=== PATIENT | male | born 1950 | race Caucasian/White ===

== ENCOUNTER 2017-05-14 06:44 | Day surgery (SDC) | payer OTHER ==
[~2017-05-14] VITALS: Ht 182.9 cm; Wt 93.2 kg
[2017-05-14 06:59] VITALS: BP 123/90; PULSE 81; RESP 20; TEMP 98.3; O2SAT 96
[2017-05-14] MEDS ORDERED: CHLORHEXIDINE GLUCONATE 2 % 1 PACK (2 CLOTHS) TOPICAL SCH (07:15)
[2017-05-14] MEDS ORDERED: SODIUM CHLORIDE 0.9% 1000 ML IV SCH (07:15)
[2017-05-14] MEDS ORDERED: VANCOMYCIN 1000 MG/NS 250 ML - implanted port/tunneled catheter IV SCH ×2 (07:15)
[2017-05-14] MEDS ORDERED: LEVOFLOXACIN 500 MG PREMIX 100 ML - nephrostomy tube insertion or exchange IV SCH (07:15)
[2017-05-14] MEDS ORDERED: POVIDONE IODINE 5% (ANTISEPSIS KIT) 4 APPLICATIONS EACH NARE SCH (07:15)
[2017-05-14] MEDS ORDERED: OXYC1TAB35 PO (07:42)
[2017-05-14] MEDS ORDERED: FISHCAP4 PO (07:42)
[2017-05-14] MEDS ORDERED: ASPI81CH7 CHEW (07:42)
[2017-05-14] MEDS ORDERED: FLUO40CA PO (07:42)
[2017-05-14] MEDS ORDERED: FENO160T PO (07:42)
[2017-05-14] MEDS ORDERED: VITA1000 PO (07:42)
[2017-05-14] MEDS ORDERED: LISI10TA3 PO (07:42)
[2017-05-14] MEDS ORDERED: ROSU1TAB6 PO (07:42)
[2017-05-14] MEDS ORDERED: MIDAZOLAM HCL 5 MG/5 ML VIAL ONE (08:20)
[2017-05-14] MEDS ORDERED: fentaNYL CITRATE 250 MCG/5 ML AMP ONE (08:21)
[2017-05-14] MEDS ORDERED: LIDOCAINE 1%/EPINEPHrine 1:100,000 SOLN 20 ML VIAL ONE (08:57)
[2017-05-14 10:00] VITALS: BP 127/72; PULSE 90; RESP 20; TEMP 97.7; O2SAT 97
[2017-05-14] MEDS ORDERED: SODIUM CHLORIDE 0.9% FLUSH 10 ML FLUSH IVF PRN (10:00)
--- NOTE | 2017-05-14 10:02 | PD.RAD ---
Post Procedure Progress Note Pre Procedure Diagnosis: (1) Lung cancer Post Procedure Diagnosis: (1) Lung cancer Procedure Date: May 14, 2017 Supervising Radiologist: Ricardo Snider Proceduralist/Assist: RT Dominga(R) Anesthesia: Local, Conscious Sedation Plan of Activity Patient to Unit: ROPU Patient Condition: Good See PACS Report for procedural detail/treatment Central Venous Access Device Procedure 1 Left Internal Jugular Infusaport Placement single lumen Indonesian: 8 Ricardo Snider MD May 14, 2017 10:02
[2017-05-14 10:15] VITALS: BP 116/76; PULSE 85; RESP 20; O2SAT 97
[2017-05-14 10:45] VITALS: BP 114/68; PULSE 78; RESP 20; O2SAT 95
[2017-05-14 11:15] VITALS: BP 112/69; PULSE 75; RESP 18; O2SAT 93
[2017-05-14 11:45] VITALS: BP 122/75; PULSE 75; RESP 20; O2SAT 94
--- NOTE | 2017-05-14 12:29 | RADRPT ---
EXAM DATE/TIME: 05/14/2017 08:14 [facility] COMPARISON: No previous studies available for comparison. INDICATIONS : Patient presents with lung cancer in need of port placment chemotherapy treatment. MEDICAL HISTORY : Right lung cancer HTN Heart murmur SURGICAL HISTORY : Right cataract sx Right lobectomy Back and ankle sx Hernia x2 ENCOUNTER: Initial ACUITY: 1 month PAIN SCORE: 0/10 LOCATION: N/A FLUORO TIME: 1.4 minutes IMAGE SERIES: 1 SEDATION TIME: 60 minutes ACCESS: Left internal jugular vein SEDATION: 1.) 5 mg midazolam (Versed) IV 2.) 250 mcg fentanyl (Sublimaze) IV Prophylactic antibiotics were administered with appropriate pre-procedure timing. Vancomycin within 2 hours of procedure, Ancef (or alternative) within 1 hour of procedure. DEVICE: 1. 8 Uzbek single lumen Smart port CT w/ vortex PROCEDURE : 1. Continuous pulse oximetry and EKG monitoring. 2. Intravenous conscious sedation. 3. Ultrasound guidance for venous access. 4. Fluoroscopic guided implantable central venous port placement. The patient was placed supine. The neck was prepped in sterile fashion. Full sterile technique was u sed, including cap, mask, sterile gloves and gown, and a large sterile sheet. Hand hygiene and 2% ch lorhexidine Betadine was utilized per protocol for cutaneous antisepsis with appropriate dry time for site. The skin and subcutaneous tissues were infiltrated with local anesthetic solution. Under direct ultrasound guidance, central venous access was accomplished in the targeted vessel. The ultrasound images depicting access guidance were stored and saved to PACS for permanent record. A s ubcutaneous pocket was created using blunt dissection. The port was introduced to the pocket. The c atheter tubing was fed through a subcutaneous tunnel to the venotomy site. The catheter tubing was c ut to a suitable length and then was introduced through a valved Peel-Away sheath and positioned with catheter tubing tip at the cavo-atrial junction level. The pocket incision was closed with subcutic ular Vicryl suture. Steri-Strips were applied. The port was flushed and locked with heparin solutio n per protocol. Sterile dressing was applied to the site. The patient tolerated the procedure well. Conscious sedation was performed with the prescribed dosages and duration as above in the presence of an independent trained radiology nurse to assist in the monitoring of the patient. EKG and oximetry remained stable throughout the procedure. The patient tolerated the procedure well and there were no complications. The patient was sent to post anesthesia recovery in stable condition. CONCLUSION: Uncomplicated ultrasound and fluoroscopic guided implanted central venous port catheter placement as described in detail above. An 8 Uzbek Power port was placed. Ricardo Snider MD on May 14, 2017 at 12:27 Board Certified Radiologist. This report was verified electronically.
== END 2017-05-14 11:55 | disposition home or self-care (01) ==
LOC: HROP 06:44 → HRIP 06:44 → HROP 11:55
PROVIDERS: ATTEND Internal Medicine Hematology & Oncology
DX: C34.90 Malignant neoplasm of unspecified part of unspecified bronchus or lung (principal); I10 Essential (primary) hypertension; R01.1 Cardiac murmur, unspecified
CPT/HCPCS: 36561; 76937; 77001; 99152; 99153; C1769; C1788; C1887; C1894; J1642; J1956; J2250; J3010; J3370; J7030; J7050

== ENCOUNTER 2017-09-05 05:52 | Emergency (ER) | payer OTHER ==
[~2017-09-05] VITALS: Ht 185.4 cm; Wt 95.0 kg
[~2017-09-05 05:52] MED LIST: ASPI81CH7 CHEW; FENO160T PO; FISHCAP4 PO; FLUO40CA PO; LISI10TA3 PO; OXYC1TAB35 PO; ROSU1TAB6 PO; VITA1000 PO
[2017-09-05 05:54] VITALS: BP 120/80; PULSE 98; RESP 22; TEMP 97.9; O2SAT 96
--- NOTE | 2017-09-05 06:14 | PD ---
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 Wong, here for evaluation of chest pain. Patient reports that the pain started yesterday just before 3 PM while receiving a blood transfusion. The patient reports that he received 2 units of blood yesterday at [facility]. He reports that the pain is in his mid back between his shoulder blades and radiates to his bilateral shoulders. He is unable to describe the pain. The pain is moderate to severe, constant, no modifying factors. He is having some dyspnea, but states that he always has dyspnea after his lobectomy. He denies fevers or chills. No cough or hemoptysis. No history of DVT or PE. No known history of CAD. No paresthesias or motor deficits. Patient tells me that he usually receives Lasix with his blood transfusions, however he did not receive Lasix yesterday, and believes that this may be causing his symptoms. PFSH Past Medical History Cancer: Yes (lung) Cardiovascular Problems: Yes (murmur) Diabetes: No Endocrine: No Genitourinary: No Hepatitis: No Hiatal Hernia: No Hypertension: Yes Immune Disorder: No Musculoskeletal: Yes (rods and screws in back) Neurologic: No Psychiatric: No Reproductive: No Respiratory: No Thyroid Disease: No Tetanus Vaccination: Unknown Past Surgical History Abdominal Surgery: Yes (hernia) AICD: No Cardiac Surgery: No Ear Surgery: No Endocrine Surgery: No Eye Surgery: Yes (right cataract) Genitourinary Surgery: No Gynecologic Surgery: No Joint Replacement: No Oral Surgery: No Pacemaker: No Thoracic Surgery: Yes (2/3 of lung removed) Other Surgery: Yes Social History Alcohol Use: No Tobacco Use: No Substance Use: No Allergies-Medications (Allergen,Severity, Reaction): Coded Allergies: penicillin G (Unverified Allergy, Severe, 09/05/17) Reported Meds & Prescriptions Reported Meds & Active Scripts Active Reported Rosuvastatin (Rosuvastatin Calcium) 10 Mg Tab 10 Mg PO HS Oxycodone-Acetaminophen 7.5-325 mg Tab 1 Tab PO BID PRN Fluoxetine (Fluoxetine HCl) 40 Mg Cap 40 Cap PO DAILY Fish Oil + D3 (Fish Oil-Cholecalciferol) 1,200-1,000 Mg-Unit Cap 1 Cap PO DAILY Aspirin Children's (Aspirin) 81 Mg Chew 81 Mg CHEW DAILY Vitamin D-1000 (Cholecalciferol) 1,000 Unit Tab 1,000 Units PO DAILY Review of Systems Except as stated in HPI: all other systems reviewed are Neg Physical Exam Narrative GENERAL: Well-developed, well-nourished, comfortable, no apparent distress. SKIN: Focused skin assessment warm/dry. Diffuse pallor. HEAD: Atraumatic. Normocephalic. EYES: Pupils equal and round. No scleral icterus. No injection or drainage. ENT: Mucous membranes pink and moist. NECK: Trachea midline. No JVD. CARDIOVASCULAR: Regular rate and rhythm. Distal pulses brisk and equal bilaterally. RESPIRATORY: No accessory muscle use. Clear to auscultation. Breath sounds equal bilaterally. GASTROINTESTINAL: Abdomen soft, non-tender, nondistended. MUSCULOSKELETAL: No obvious deformities. No clubbing. No cyanosis. No edema. NEUROLOGICAL: Awake and alert. No obvious cranial nerve deficits. Motor grossly within normal limits. Normal speech. PSYCHIATRIC: Appropriate mood and affect; insight and judgment normal. Data Data Last Documented VS Vital Signs Date Time Temp Pulse Resp B/P (MAP) Pulse Ox O2 Delivery O2 Flow Rate FiO2 09/05/17 05:54 97.9 98 22 120/80 (93) 96 Room Air Orders Orders Complete Blood Count With Diff (09/05/17 06:26) Comprehensive Metabolic Panel (09/05/17 06:26) B-Type Natriuretic Peptide (09/05/17 06:26) Act Partial Throm Time (Ptt) (09/05/17 06:26) Prothrombin Time / Inr (Pt) (09/05/17 06:26) Ckmb (Isoenzyme) Profile (09/05/17 06:26) Troponin I (09/05/17 06:26) Iv Access Insert/Monitor (09/05/17 06:26) Ecg Monitoring (09/05/17 06:26) Oximetry (09/05/17 06:26) Oxygen Administration (09/05/17 06:26) Chest, Single Ap (09/05/17 06:26) Ct Pulmonary Angiogram (09/05/17 06:26) Sodium Chloride 0.9% Flush (Ns Flush) (09/05/17 06:30) Aspirin Chew (Aspirin Chew) (09/05/17 07:00) Labs Laboratory Tests Test 09/05/17 06:30 White Blood Count 5.2 TH/MM3 Red Blood Count 3.03 MIL/MM3 Hemoglobin 9.5 GM/DL Hematocrit 27.4 % Mean Corpuscular Volume 90.5 FL Mean Corpuscular Hemoglobin 31.2 PG Mean Corpuscular Hemoglobin Concent 34.5 % Red Cell Distribution Width 16.7 % Platelet Count 97 TH/MM3 Mean Platelet Volume 8.6 FL Neutrophils (%) (Auto) 55.3 % Lymphocytes (%) (Auto) 27.1 % Monocytes (%) (Auto) 17.1 % Eosinophils (%) (Auto) 0.0 % Basophils (%) (Auto) 0.5 % Neutrophils # (Auto) 2.9 TH/MM3 Lymphocytes # (Auto) 1.4 TH/MM3 Monocytes # (Auto) 0.9 TH/MM3 Eosinophils # (Auto) 0.0 TH/MM3 Basophils # (Auto) 0.0 TH/MM3 CBC Comment AUTO DIFF Prothrombin Time 10.7 SEC Prothromb Time International Ratio 1.0 RATIO Activated Partial Thromboplast Time 30.8 SEC Creatinine 1.02 MG/DL Random Glucose 93 MG/DL Albumin 3.7 GM/DL Calcium Level 8.8 MG/DL Aspartate Amino Transf (AST/SGOT) 20 U/L Sodium Level 138 MEQ/L Potassium Level 4.0 MEQ/L Chloride Level 105 MEQ/L Carbon Dioxide Level 23.4 MEQ/L Anion Gap 10 MEQ/L Estimat Glomerular Filtration Rate 73 ML/MIN MDM Medical Decision Making Medical Screen Exam Complete: Yes Emergency Medical Condition: Yes Medical Record Reviewed: Yes Interpretation(s) EKG: Sinus, rate 72, normal axis, normal intervals, no acute ischemic abnormality. Differential Diagnosis ACS, PE, pneumothorax, dissection, pericarditis, pneumonia, pulmonary edema, anemia, musculoskeletal pain, transfusion reaction Narrative Course Initial vital signs show heart rate 98, blood pressure 120/80, pulse ox 96% on room air, oral temp of 97.9F. Chest x-ray shows no infiltrate, no pneumothorax. CBC shows a WBC of 5.1 and hemoglobin of 9.5, platelets 97. At approximately 7:00 AM at the end of my shift the patient was signed out to oncoming provider Dr. Cardoso to follow up with labs, CT pulmonary angiogram, and formulate a disposition. Pavel Gastelum MD Sep 05, 2017 06:14
[2017-09-05] MEDS ORDERED: SODIUM CHLORIDE 0.9% FLUSH 10 ML FLUSH IVF PRN (06:30)
--- NOTE | 2017-09-05 06:47 | RADRPT ---
EXAM DATE/TIME: 09/05/2017 06:32 [facility] COMPARISON: CT SIMULATION, July 11, 2017, 11:05. INDICATIONS : Shortness of breath and chest pain. MEDICAL HISTORY : Right lung cancer. SURGICAL HISTORY : Right lung lobectomy. Infusaport. ENCOUNTER: Initial ACUITY: 2 days PAIN SCORE: 5/10 LOCATION: chest FINDINGS: Left Bmdlro-x-Ceoh catheter tip projects over the right atrium. No evidence pneumothorax. There is blunting of the right cardiophrenic angle congruous with history of right lower lobectomy. The remai nder of the lungs are clear. No evidence of pleural effusion. The heart is normal size. CONCLUSION: No focal infiltrates seen. No evidence of pneumothorax. Abebe Scuhltz MD on September 05, 2017 at 6:44 Board Certified Radiologist. This report was verified electronically.
[2017-09-05 06:48] LABS: AUTOMATED NEUTROPHIL # 2.9 TH/MM3 (1.8-7.7); BASOPHIL % 0.5 % (0.0-2.0); HEMATOCRIT 27.4 % (39.0-51.0); LYMPH % 27.1 % (9.0-44.0); LYMPHOCYTE # 1.4 TH/MM3 (1.0-4.8); MEAN CELL VOLUME 90.5 FL (80.0-100.0); MEAN CORPUSCULAR HEMOGLOBIN 31.2 PG (27.0-34.0); MEAN CORPUSCULAR HGB CONC 34.5 % (32.0-36.0); MONO % 17.1 % (0.0-8.0); NEUT % 55.3 % (16.0-70.0); PLATELET COUNT 97 TH/MM3 (150-450); RED BLOOD COUNT 3.03 MIL/MM3 (4.50-5.90); RED CELL DISTRIBUTION WIDTH 16.7 % (11.6-17.2); WHITE BLOOD COUNT 5.2 TH/MM3 (4.0-11.0)
[2017-09-05 06:54] LABS: HEMO FLAGS AUTO DIFF
[2017-09-05 06:56] LABS: APTT (PATIENT) 30.8 SEC (24.3-30.1); PROTHROMBIN TIME - PATIENT 10.7 SEC (9.8-11.6)
[2017-09-05] MEDS ORDERED: ASPIRIN 81 MG CHEW TAB PO ONE (07:00)
[2017-09-05 07:04] LABS: ANION GAP 10 MEQ/L (5-15); AST (GOT) 20 U/L (15-37); BICARBONATE 23.4 MEQ/L (21.0-32.0); CHLORIDE 105 MEQ/L (98-107); GLOMERULAR FILTRATION RATE 73 ML/MIN (>89); SODIUM (NA) 138 MEQ/L (136-145)
[2017-09-05 07:11] LABS: ALKALINE PHOSPHATASE 71 U/L (45-117); ALT (GPT) 28 U/L (12-78); BLOOD UREA NITROGEN 20 MG/DL (7-18); TOTAL BILIRUBIN ADULT 0.6 MG/DL (0.2-1.0)
[2017-09-05 07:14] LABS: CREATINE KINASE 73 U/L (39-308)
[2017-09-05 07:19] VITALS: BP 115/68; PULSE 67; RESP 12; O2SAT 96
[2017-09-05] MEDS ORDERED: IOHEXOL 350 MG/ML 10 ML VIAL (for RAD DIAG) IVCONTRAST ONE (07:34)
[2017-09-05 07:42] LABS: BANDS 22 % (0-6); METAMYELOCYTES 4 % (0-1); MYELOCYTES 3 % (0-0); NEUTROPHIL # MANUAL DIFF 2.4 TH/MM3 (1.8-7.7); PLATELET ESTIMATE SMEAR LOW (NORMAL); PLATELET MORPHOLOGY NORMAL (NORMAL); POLYS (SEG NEUTROPHILS) 17 % (16-70); SCAN/DIFF FINAL DIFF MANUAL; TOXIC GRANULATION 1+ (NORMAL); WBC DIFF SAMPLE 100
[2017-09-05 07:43] LABS: DOHLE BODIES PRESENT (NONE SEEN); TOXIC VACUOLATION PRESENT (NONE SEEN)
--- NOTE | 2017-09-05 07:49 | RADRPT ---
EXAM DATE/TIME: 09/05/2017 07:18 [facility] COMPARISON: No previous studies available for comparison. INDICATIONS : Mid chest/back pain radiating to shoulders. IV CONTRAST: 65 cc Omnipaque 350 (iohexol) IV RADIATION DOSE: 12.78 CTDIvol (mGy) MEDICAL HISTORY : Carcinoma, lung. Metastatic, brain. Hypertension. SURGICAL HISTORY : Lobectomy. ENCOUNTER: Initial ACUITY: 2 days PAIN SCALE: 5/10 LOCATION: Bilateral chest TECHNIQUE: Volumetric scanning of the chest was performed using a pulmonary embolism protocol MIP images were re constructed. Using automated exposure control and adjustment of the mA and/or kV according to patien t size, radiation dose was kept as low as reasonably achievable to obtain optimal diagnostic quality images. DICOM format image data is available electronically for review and comparison. Follow-up recommendations for detected pulmonary nodules are based at a minimum on nodule size and pa tient risk factors according to Fleischner Society Guidelines. FINDINGS: PULMONARY ARTERIES: No filling defects are seen in the pulmonary arteries through the segmental level. LUNGS: There is emphysema with chronic interstitial changes with peripheral reticular opacities. 8mm nodule upper right lung medially. In the right lower lobe is a 6 mm nodule. Left lower lobe 9 mm nodule. Pos tsurgical changes on the right. Several other smaller nodules are seen. Left-sided portacatheter with tip in the right atrium. PLEURAE: Small right pleural effusion partially loculated. There is no pleural thickening or pleural effusion on the left. MEDIASTINUM: There is good visualization of the great vessels of the middle mediastinum. No evidence of mediastin al or hilar adenopathy/mass. Coronary artery calcifications. MUSCULOSKELETAL: Within normal limits for patient age. MISCELLANEOUS: The visualized upper abdominal organs demonstrate low-density lesion in the liver on the most inferio r edge.. CONCLUSION: 1. No evidence for pulmonary embolism. 2. Postsurgical changes right lung. 3. There are some scattered subcentimeter pulmonary nodules largest left lower lobe measuring 9 mm. M etastatic disease cannot be excluded. 4. Small right-sided partially loculated pleural effusion. 5. Low-density lesion in the liver, could be metastatic lesion. Gomez Dominguez MD on September 05, 2017 at 7:42 Board Certified Radiologist. This report was verified electronically.
--- NOTE | 2017-09-05 07:54 | PD ---
Data Data Last Documented VS Vital Signs Date Time Temp Pulse Resp B/P (MAP) Pulse Ox O2 Delivery O2 Flow Rate FiO2 09/05/17 08:38 (84) 09/05/17 07:19 96 Room Air 09/05/17 07:19 67 12 09/05/17 05:54 97.9 Orders Orders Complete Blood Count With Diff (09/05/17 06:26) Comprehensive Metabolic Panel (09/05/17 06:26) B-Type Natriuretic Peptide (09/05/17 06:26) Act Partial Throm Time (Ptt) (09/05/17 06:26) Prothrombin Time / Inr (Pt) (09/05/17 06:26) Ckmb (Isoenzyme) Profile (09/05/17 06:26) Troponin I (09/05/17 06:26) Iv Access Insert/Monitor (09/05/17 06:26) Ecg Monitoring (09/05/17 06:26) Oximetry (09/05/17 06:26) Oxygen Administration (09/05/17 06:26) Chest, Single Ap (09/05/17 06:26) Ct Pulmonary Angiogram (09/05/17 06:26) Sodium Chloride 0.9% Flush (Ns Flush) (09/05/17 06:30) Aspirin Chew (Aspirin Chew) (09/05/17 07:00) Electrocardiogram (09/05/17 06:08) Iohexol 350 Inj (Omnipaque 350 Inj) (09/05/17 07:34) Ed Discharge Order (09/05/17 08:16) Labs Laboratory Tests Test 09/05/17 06:30 White Blood Count 5.2 TH/MM3 Red Blood Count 3.03 MIL/MM3 Hemoglobin 9.5 GM/DL Hematocrit 27.4 % Mean Corpuscular Volume 90.5 FL Mean Corpuscular Hemoglobin 31.2 PG Mean Corpuscular Hemoglobin Concent 34.5 % Red Cell Distribution Width 16.7 % Platelet Count 97 TH/MM3 Mean Platelet Volume 8.6 FL Neutrophils (%) (Auto) 55.3 % Lymphocytes (%) (Auto) 27.1 % Monocytes (%) (Auto) 17.1 % Eosinophils (%) (Auto) 0.0 % Basophils (%) (Auto) 0.5 % Neutrophils # (Auto) 2.9 TH/MM3 Lymphocytes # (Auto) 1.4 TH/MM3 Monocytes # (Auto) 0.9 TH/MM3 Eosinophils # (Auto) 0.0 TH/MM3 Basophils # (Auto) 0.0 TH/MM3 CBC Comment AUTO DIFF Differential Total Cells Counted 100 Neutrophils % (Manual) 17 % Band Neutrophils % 22 % Lymphocytes % 41 % Monocytes % 13 % Neutrophils # (Manual) 2.4 TH/MM3 Metamyelocytes 4 % Myelocytes 3 % Differential Comment FINAL DIFF MANUAL Toxic Granulation 1+ Toxic Vacuolation PRESENT Dohle Bodies PRESENT Platelet Estimate LOW Platelet Morphology Comment NORMAL Prothrombin Time 10.7 SEC Prothromb Time International Ratio 1.0 RATIO Activated Partial Thromboplast Time 30.8 SEC Blood Urea Nitrogen 20 MG/DL Creatinine 1.02 MG/DL Random Glucose 93 MG/DL Total Protein 7.0 GM/DL Albumin 3.7 GM/DL Calcium Level 8.8 MG/DL Alkaline Phosphatase 71 U/L Aspartate Amino Transf (AST/SGOT) 20 U/L Alanine Aminotransferase (ALT/SGPT) 28 U/L Total Bilirubin 0.6 MG/DL Sodium Level 138 MEQ/L Potassium Level 4.0 MEQ/L Chloride Level 105 MEQ/L Carbon Dioxide Level 23.4 MEQ/L Anion Gap 10 MEQ/L Estimat Glomerular Filtration Rate 73 ML/MIN Total Creatine Kinase 73 U/L Troponin I LESS THAN 0.02 NG/ML B-Type Natriuretic Peptide 80 PG/ML MDM Supervised Visit with MARY: No Narrative Course Patient care assumed from Dr. Pavel Gastelum At 0700. This is a 66-year-old male with a history of metastatic lung cancer presents emergency department for evaluation of back pain radiating down both arms. His chief concern to me was that he was concerned that a tumor may have popped up on his spine. The patient states that in the middle of the night last night he had onset of this pain. Denies any shortness of breath to me. Denies any anterior chest pain or substernal chest pain. States the pain is now completely resolved. States he had a stress test years ago which was normal. Has not followed with a manufacturing electrician. My instructions were to follow-up CT PE and cardiac enzymes and disposition the patient appropriately. My physical exam the patient has full strength in bilateral upper extremities and has no loss of sensation. He appears comfortable in no distress, no murmurs gallops or rubs and 2+ bilateral equal pulses in all 4 extremities without any edema in his legs. Clear lungs. Review the patient's chart shows that he is has an EKG which is normal sinus rhythm normal axis normal R-wave progression and ST segment changes intervals within normal as. This probably normal EKG, troponin negative, CK-MB negative. His CT PE protocol was negative for pulmonary embolism but did show a loculated pleural effusion in his right chest which I think is consistent with his postoperative period as he had a partial lobectomy 4 months ago. Certainly is not had any fever he is not short of breath and there is no indication for emergent management of this pleural effusion. Head and at length discussion with the patient about the possibility of doing an MRI of his thoracic spine, at this time there is no emergent cause to do one but he was still offered morning and he declined stating he would rather follow up with Dr. Raza. I discussed the pleural effusion with him and that in my opinion there is no need for emergent management of this and he can follow this up with Dr. Raza. That leaves the possibility of ACS. He seems fairly low risk, he was offered admission for stress testing but again he would rather follow up with Dr. Raza. I think this is reasonable given his symptoms are highly atypical for cardiac disease. He is more than 3 hours out from his onset of symptoms and a single troponin was negative. I discussed with him that this is not 100% for ruling out coronary artery disease she verbalized understanding of major adverse cardiac event and still wished to follow-up with Dr. Raza. He is calm and collective and I think he can make his own decisions. I discussed with him return to ED criteria including worsening pain which would prompt further workup. Diagnosis Primary Impression: Back pain Qualified Codes: M54.6 - Pain in thoracic spine Additional Impression: Pleural effusion Referrals: Sung Wong MD Additional Instruction: Talk to Dr. Wong about your pleural effusion and back pain. He may want you to see a manufacturing electrician. Call him today to discuss. Disposition: 01 DISCHARGE HOME Condition: Stable Miles Cardoso MD Sep 05, 2017 07:54
--- NOTE | 2017-09-05 17:43 | EKG ---
Date Performed: 09/05/2017 Time Performed: 06:08:31 PTAGE: 66 years EKG: Sinus rhythm NORMAL ECG NO PREVIOUS TRACING DOCTOR: Eduardo Travis Interpretating Date/Time 09/05/2017 17:42:32
== END 2017-09-05 08:39 | disposition home or self-care (01) ==
LOC: NEPE 05:52
DX: C34.91 Malignant neoplasm of unspecified part of right bronchus or lung (principal); C79.31 Secondary malignant neoplasm of brain; M54.6 Pain in thoracic spine; J90 Pleural effusion, not elsewhere classified
CPT/HCPCS: 71010; 71275; 80053; 82550; 83880; 84484; 85007; 85027; 85610; 85730; 93005; 99285; Q9967

== ENCOUNTER 2018-02-12 08:14 | Day surgery (SDC) | payer OTHER ==
[~2018-02-12] VITALS: Ht 182.9 cm; Wt 90.5 kg
[~2018-02-12 08:14] MED LIST changes: -FENO160T PO; -LISI10TA3 PO
[2018-02-12 08:37] VITALS: BP 105/74; PULSE 71; RESP 20; TEMP 97.6; O2SAT 94
[2018-02-12 08:55] LABS: AUTOMATED NEUTROPHIL # 5.4 TH/MM3 (1.8-7.7); BASOPHIL % 0.2 % (0.0-2.0); EOSINOPHIL % 0.6 % (0.0-4.0); MEAN CORPUSCULAR HEMOGLOBIN 31.2 PG (27.0-34.0); MEAN CORPUSCULAR HGB CONC 34.3 % (32.0-36.0); MEAN PLATELET VOLUME 8.2 FL (7.0-11.0); MONO % 12.3 % (0.0-8.0); MONOCYTE # 0.9 TH/MM3 (0-0.9); NEUT % 73.9 % (16.0-70.0); PLATELET COUNT 202 TH/MM3 (150-450); RED BLOOD COUNT 3.85 MIL/MM3 (4.50-5.90); RED CELL DISTRIBUTION WIDTH 14.8 % (11.6-17.2); WHITE BLOOD COUNT 7.3 TH/MM3 (4.0-11.0)
[2018-02-12 09:04] LABS: INTERNATIONAL NORMALIZED RATIO 1.1 RATIO; PROTHROMBIN TIME - PATIENT 10.8 SEC (9.8-11.6)
[2018-02-12] MEDS ORDERED: CLINDAMYCIN 600 MG/NS 100 ML IV SCH ×2 (09:15)
[2018-02-12] MEDS ORDERED: SODIUM CHLORIDE 0.9% 1000 ML IV SCH (09:15)
[2018-02-12] MEDS ORDERED: LIDOCAINE 1%/EPINEPHrine 1:100,000 SOLN 30 ML VIAL ONE (09:36)
[2018-02-12 10:25] VITALS: BP 116/69; PULSE 60; RESP 18; TEMP 97.8; O2SAT 98
--- NOTE | 2018-02-12 10:31 | PD.RAD ---
Post Procedure Progress Note Pre Procedure Diagnosis: (1) Lung cancer Post Procedure Diagnosis: (1) Lung cancer Procedure Date: Feb 12, 2018 Supervising Radiologist: Faustino Escobedo Proceduralist/Assist: Harriet Peter, RT(R)(CV), Colleen Ruiz RT(R) Anesthesia: Local Plan of Activity Patient to Unit: ROPU Patient Condition: Good See PACS Report for procedural detail/treatment Central Venous Access Device Procedure 1 Left Internal Jugular Infusaport Removal single lumen Tajik: 8 Faustino Escobedo MD Feb 12, 2018 10:31
[2018-02-12 10:40] VITALS: BP 101/58; PULSE 60; RESP 18; TEMP 97.8; O2SAT 92
--- NOTE | 2018-02-12 17:42 | RADRPT ---
EXAM DATE/TIME: 02/12/2018 00:00 [facility] COMPARISON: No previous studies available for comparison. INDICATIONS : Patient with history of lung cancer in need of Cpzbg-[id number]-Tloy removal. MEDICAL HISTORY : Right lower lung mass, Right lobe liver mass, Left adrenal gland mets, Isolated brain mets with mets to the liver, Chronic kidney disease, HLD, HTN SURGICAL HISTORY : Lung biopsy, Port placement, RLL lung resection, Colonoscopy ENCOUNTER: Subsequent ACUITY: 7-11 months PAIN SCORE: 0/10 Prophylactic antibiotics were administered with appropriate pre-procedure timing. Vancomycin within 2 hrs of procedure, Ancef (or alternative) within 1 hr of procedure. PROCEDURE : 1. Removal of Ebjubu-s-ithb. 2. Conscious sedation with continuous EKG and oximetry monitoring. The risk, benefits and potential complications of Xcqhge-w-Kclz removal were discussed. Written conse nt was obtained. The patient was placed supine. The chest wall was prepped in sterile fashion. Full sterile techniqu e was used, including cap, mask, sterile gloves and gown, and a large sterile sheet. Hand hygiene an d 2% chlorhexidine and/or Betadine/alcohol prep was utilized per protocol for cutaneous antisepsis. The skin and subcutaneous tissues were infiltrated with local anesthetic solution. A small incision w as made, the subcutaneous pocket was opened. The port was dissected from the subcutaneous tissues and easily removed in one piece. The pocket incision was closed with subcuticular Vicryl suture. Steri -Strips were applied. Conscious sedation was performed with the prescribed dosages and duration as above in the presence of an independent trained radiology nurse to assist in the monitoring of the patient. EKG and oximetry remained stable throughout the procedure. The patient tolerated the procedure well and there were no complications. The patient was sent to post anesthesia recovery in stable condition. CONCLUSION: Uncomplicated port removal as above. Faustino Escobedo MD on February 12, 2018 at 17:39 Board Certified Radiologist. This report was verified electronically.
== END 2018-02-12 11:15 | disposition home or self-care (01) ==
LOC: HROP 08:14 → HRIP 08:17 → HROP 11:15
PROVIDERS: ATTEND Internal Medicine Hematology & Oncology
DX: Z45.2 Encounter for adjustment and management of vascular access device (principal); C34.90 Malignant neoplasm of unspecified part of unspecified bronchus or lung; C78.7 Secondary malignant neoplasm of liver and intrahepatic bile duct; C79.31 Secondary malignant neoplasm of brain; I12.9 Hypertensive chronic kidney disease with stage 1 through stage 4 chronic kidney disease, or unspecified chronic kidney disease; N18.9 Chronic kidney disease, unspecified; E78.5 Hyperlipidemia, unspecified
CPT/HCPCS: 36590; 85025; 85610; 85730; J7030